=== PATIENT | female | born 1995 | race African-American/Black ===

== ENCOUNTER 2023-11-01 06:13 | Day surgery (SDC) | payer OTHER ==
[~2023-11-01] VITALS: Ht 157.5 cm; Wt 94.4 kg
[~2023-11-01 06:13] MED LIST: LR 1,000 ML IV SCH; Ondansetron 4 MG/2 ML VIAL IV PRN
[2023-11-01 06:49] VITALS: BP 121/89; PULSE 50; TEMP 97.8
--- NOTE | 2023-11-01 06:54 | NUR ---
Pt arrived with and son, VSS and WNL, RR even and unlabored; reviewed and signed consents x3, no questions/concerns; reviewed meds/pharm/allergies/history and updated; per pt, bowels are WNL for procedure; to place IV.
[2023-11-01] MEDS ORDERED: MIRALAX510G PO (06:56)
[2023-11-01] MEDS ORDERED: SEROQUEL 200MG200 MG PO (06:57)
[2023-11-01] MEDS ORDERED: BUSPAR5 MG PO (06:57)
[2023-11-01] MEDS ORDERED: MAG-OX 400400 MG/TAB PO (06:58)
[2023-11-01] MEDS ORDERED: ATARAX 25MG25 MG/TAB PO (06:58)
[2023-11-01] MEDS ORDERED: DULCOLAX TAB5 MG PO (06:59)
[2023-11-01 08:40] VITALS: BP 107/78; PULSE 89; TEMP 97.3
[2023-11-01 08:45] VITALS: BP 110/88; PULSE 91
--- NOTE | 2023-11-01 09:15 | NUR ---
0840- PT RETURNS FROM ENDO PROCEDURE VIA CART AND RN ASSIST TO GI BAY 3. PT AMBULATES FROM CART TO BATHROOM. PT AMBULATES WITH ASSIST FROM BATHROOM TO RECLINER. MONITORS ON AND ALARMS SET. CALL LIGHT WITHIN REACH. REPORT RECEIVED FROM NORAH DALAL. PT ALERT AND ORIENTED. PT REQUESTS DRINK. PT DENIES ANY PAIN OR NAUSEA. 0845- PT TAKING FOOD AND DRINK WELL. NO COMPLICATIONS NOTED. 09- DISCHARGE INSTRUCTIONS GIVEN TO PT. ALL QUESTIOSN ANSWERED. 0920- PT TRANSFERRED OUT OF THE HOSPITAL VIA WHEELCHAIR BY AID TO OWN PRIVATE VEHICLE DRIVEN BY .
== END 2023-11-01 09:19 | disposition home or self-care (01) ==
LOC: SDCO 06:13
DX: K59.04 Chronic idiopathic constipation (principal); K62.5 Hemorrhage of anus and rectum; K64.0 First degree hemorrhoids; Z87.19 Personal history of other diseases of the digestive system
CPT/HCPCS: J2704; J7120